=== PATIENT | male | born 1990 ===

== ENCOUNTER 2020-05-04 09:20 | Outpatient (REF) | payer OTHER, SELFPAY | END 2020-05-04 09:21 | disposition home or self-care (01) | LOC: HO.LAB 09:20 | PROVIDERS: Visit Provider Internal Medicine | DX: Z20.828 Contact with and (suspected) exposure to other viral communicable diseases (principal) | CPT/HCPCS: 87635 ==

== ENCOUNTER 2020-06-26 16:10 | Outpatient (REF) | payer OTHER, SELFPAY | END 2020-06-26 16:11 | disposition home or self-care (01) | LOC: HO.LAB 16:10 | PROVIDERS: Visit Provider Internal Medicine | DX: Z20.828 Contact with and (suspected) exposure to other viral communicable diseases (principal) | CPT/HCPCS: C9803; U0003 ==

== ENCOUNTER 2020-07-20 11:47 | Emergency (ER) | payer OTHER, SELFPAY ==
[2020-07-20 13:07] VITALS: BP 124/52; PULSE 72; RESP 18; TEMP 36.7; O2SAT 96; BMI 23.3
--- NOTE | 2020-07-20 13:17 | ED_ITS ---
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 States laceration occurred at work he was replacing a heat radiator and a sharp pointy metal part cut across his palm resulting in a small 2 cm laceration. States he had blood coming which stopped with pressure dressing. He denies any finger weakness or numbness. Able to make a full fist and full movement. States tetanus vaccination 6 months ago. Date of injury 07/20/2020 occurred 1 hour prior to arrival Onset (ago): hour(s) Extremity Location: right: hand Place: work Patient tetanus UTD: Yes Associated symptoms: none Related Data Previous Rx's Medication Instructions Recorded cephalexin [Keflex] 500 mg PO BID 7 Days #14 cap 07/20/20 Allergies Allergy/AdvReac Type Severity Reaction Status Date / Time No Known Allergies Allergy Verified 07/20/20 13:09 [No Known Allergies*] Review of Systems Review of Systems: Constitutional: No Weight loss, No Fever, No Chills, No Night Sweats, No Fatigue, No Malaise ENT/Mouth: No Hearing loss, No Ear Pain, No Nasal Congestion, No Sinus Pain, No Hoarseness, No sore throat, No Rhinorrhea, No Swallowing Difficulty Eyes: No Eye Pain, No Swelling, No Redness, No Foreign Body, No Discharge, No Vision Changes Cardiovascular: No Chest Pain Respiratory: No Cough Gastrointestinal: No abdominal Pain Musculoskeletal: No joint pain, No Myalgias, No Joint Swelling Skin: No Skin Lesions, No rash- laceration to right hand Neuro: No Weakness, No Numbness, No Paresthesias, No Loss of Consciousness, No Dizziness, No Headache Psych: No Social Issues Heme/Lymph: No Bruising, No Bleeding,No Lymphadenopathy Endocrine: No Polyuria, No Polydipsia, No Temperature Intolerance Yes all other systems are reviewed and are negative COUNT INCLUDES [facility] Past Medical History Medical History (Updated 07/20/20 @ 14:12 by Perry Garvey NP) No known health problems Social History Social History Advance Directives: No Advance Directives Information Provided: No Physical Exam Vital Signs: Vital Signs: Last Vital Signs Temp 98.0 F 07/20/20 13:07 Pulse 72 07/20/20 13:07 Resp 18 07/20/20 13:07 BP 124/52 L 07/20/20 13:07 Pulse Ox 96 07/20/20 13:07 Body Mass Index 23.3 Reviewed Const: General: cooperative and healthy appearing; No acute distress or intoxicated appearing Nutritional Appearance: average body habitus Orientation/consciousness: patient oriented x3 Chest: Chest palpation & inspection: normal inspection of the chest Resp: Effort & Inspection: normal respiratory effort : General: Yes no CVA tenderness Back/Spine/Pelvis: Back: no CVA tenderness Skin: General skin exam: no rashes or lesions noted Neuro: General: patient oriented x3 Extrem: General: Yes normal to inspection Hand/finger images: 1. Superficial 1.5 cm flap-like laceration. Full range of motion. Able to make a fist. Finger to thumb within normal limits. No tender palpation or pain with movement. Course Course Course Narrative: Site extensively cleaned. Treatment options including Steri-Strips, sutures reviewed with patient. Agreeable given the to the laceration sutures will benefit. Risk of infection reviewed. Extensively irrigated and cleaned. Deep structures within normal limits. Neurologically intact. Up-to-date on tetanus vaccination. Given that it was slightly contaminated start Keflex, clear return follow-up instructions provided. Will return in 7-10 days for suture removal. Procedures Laceration Laceration 1: Side (If applicable): right Size (cm): 1.5 Description: linear and flap Depth: simple, single layer Local Anesthetic: lidocaine 1% Amount of anesthesia used (mL): 5 Pre-repair: irrigated extensively (Extensively irrigated with 500 cc of normal saline with 10 ml hydrogen peroxide.), deep structures intact and extensive debridement Skin layer closed with: nylon Size (cm): 4-0 Number of sutures: 2 Technique: simple, interrupted Discharge Plan Discharge Clinical Impression: Laceration of right palm Qualifiers: Encounter type: initial encounter Qualified Code(s): S61.411A - Laceration without foreign body of right hand, initial encounter Patient Disposition: Home, Self-Care Instructions: Laceration (ED) Additional Instructions: You suffered a superficial laceration to the palm of the right hand. This was extensively cleaned and irrigated prior to superficial stitches Given that there was small amount emanating in the laceration risk and benefits of having sutures were reviewed with you Site was thoroughly cleaned again There was no visible contaminants left You will be started on empiric (preventative antibiotic) Take this for the full course May use Tylenol or Motrin for pain And limit the use of the right hand To numb the right hand wet or dirty Return in 7-10 days for suture removal Monitor for any signs of infection including redness, swelling, discharge, pain, fever if any of his present return right away to emergency room Thank you Prescriptions: New cephalexin [Keflex] 500 mg capsule 500 mg PO BID 7 Days Qty: 14 RF: 0 Referrals: Perry Garvey RECORDS MANAGEMENT CLERK [Emergency Midlevel Provider] - 1 week (7-10 days for suture removal)
[2020-07-20] MEDS: Lidocaine HCl 1 % MPF 5 ML VIAL SUBCUT (13:38)
--- NOTE | 2020-07-20 13:39 | PC.NURSE ---
RIGHT HAND/PALM CLEANSED WITH NS AND HYDROGEN PEROXIDE.
== END 2020-07-20 14:29 | disposition home or self-care (01) ==
PROVIDERS: Emergency Provider Emergency Medicine
DX: S61.411A Laceration without foreign body of right hand, initial encounter (principal); W26.8XXA Contact with other sharp object(s), not elsewhere classified, initial encounter; Y93.89 Activity, other specified; Y92.9 Unspecified place or not applicable; Y99.0 Civilian activity done for income or pay
CPT/HCPCS: 12001; 99282; 99284

== ENCOUNTER 2020-11-13 12:17 | Outpatient (REF) | payer OTHER, SELFPAY ==
[2020-11-13 12:36] LABS: COVID-19 Test Negative (Negative)
== END 2020-11-13 12:18 | disposition home or self-care (01) ==
LOC: HO.LAB 12:17
PROVIDERS: Visit Provider Internal Medicine
DX: Z20.822 Contact with and (suspected) exposure to COVID-19 (principal)
CPT/HCPCS: 36415; 87635; C9803

== ENCOUNTER 2021-03-30 15:43 | Outpatient (REF) | payer OTHER, SELFPAY | END 2021-03-30 15:44 | disposition home or self-care (01) | LOC: HO.LAB 15:43 | PROVIDERS: Visit Provider Internal Medicine | DX: Z20.822 Contact with and (suspected) exposure to COVID-19 (principal) | CPT/HCPCS: C9803; U0003; U0005 ==

== ENCOUNTER 2021-07-06 08:15 | Outpatient (REF) | payer OTHER, SELFPAY ==
[2021-07-06 09:14] LABS: COVID-19 Test Negative (Negative)
== END 2021-07-06 08:16 | disposition home or self-care (01) ==
LOC: HO.LAB 08:15
PROVIDERS: Visit Provider Internal Medicine
DX: Z20.822 Contact with and (suspected) exposure to COVID-19 (principal)
CPT/HCPCS: 36415; 87635; C9803

== ENCOUNTER 2021-11-30 15:36 | Outpatient (REF) | payer OTHER, SELFPAY ==
[2021-11-30 16:16] LABS: COVID-19 Test Negative (Negative)
== END 2021-11-30 15:37 | disposition home or self-care (01) ==
LOC: HO.LAB 15:36
PROVIDERS: Visit Provider Internal Medicine
DX: Z20.822 Contact with and (suspected) exposure to COVID-19 (principal)
CPT/HCPCS: 87635; C9803

== ENCOUNTER 2023-01-02 19:47 | Emergency (ER) | payer OTHER, SELFPAY ==
--- NOTE | ~2023-01-02 | XR_ITS ---
EXAMINATION: XR FINGER, LEFT CLINICAL INFORMATION: Pain. COMPARISON: None available. TECHNIQUE: Three views of the left thumb. FINDINGS: Mild soft tissue swelling. No fracture. Alignment is anatomic. Joint spaces are maintained. XR/XR finger LT min 2V IMPRESSION: Mild soft tissue swelling. No fracture or malalignment.
--- NOTE | 2023-01-02 19:59 | ED.GENADULT ---
HPI - General Adult General Chief complaint: Extremity Injury, Upper Stated complaint: left thumb pain Time Seen by Provider: 01/02/23 20:12 Source: patient Mode of arrival: ambulatory Limitations: no limitations History of Present Illness HPI narrative: Patient is a 32-year-old male presents emergency department for evaluation of left thumb injury. Reports that he was attempting to catch a softball in his finger bent backwards and was stuck in place when he popped it forward into a normal position. Denies any numbness or tingling. It is however painful with movement of the thumb joint, and there is some mild swelling. He has been applying ice to it. Related Data Previous Rx's Medication Instructions Recorded cephalexin 500 mg capsule (Keflex) 500 mg PO BID 7 days #14 caps 07/20/20 Allergies Allergy/AdvReac Type Severity Reaction Status Date / Time No Known Allergies Allergy Verified 07/20/20 13:09 [No Known Allergies*] Review of Systems Review of Systems: Yes all other systems are reviewed and are negative [facility] Past Medical History Attestation statement: The following information was validated with the patient. Source: old records reviewed Medical History No known health problems Social History Social History Advance Directives: No Advance Directives Information Provided: Yes Physical Exam ED Vital Signs: Vital Signs - 24 hr 01/02/23 20:02 Temperature 98.0 F Pulse Rate 107 H Respiratory Rate 16 Blood Pressure 130/69 Pulse Oximetry 98 Oxygen Delivery Method Room Air BMI result Body Mass Index 26.3 Const Other: Appearance: Alert.?Oriented to person, place and time. No acute distress.?Normal affect. CVS: Heart sounds normal. Normal heart rate and rhythm.? Pulses normal.?? Respiratory: No respiratory distress.? Lung sounds clear to auscultation bilaterally?? Skin: Skin warm and dry.? Normal skin color.? Normal skin turgor.?? Extremities: Left hand with mild swelling at the base of the thumb on the palmar aspect, mild decreased AROM, no erythema, or obvious deformity. 2+ radial pulse bilaterally. Left thumb is neurovascularly intact Neuro: Moves all extremities spontaneously. Sensation intact bilaterally. Ambulates with normal steady gait. Course Course Course Narrative: 32-year-old male presents for evaluation of left thumb pain. He reports he was trying to catch a softball which bent his finger backwards. Patient states that the thumb was then stuck backwards and he ripped it forwards into normal position with his other hand. Plan for x-ray Medications Administered Discontinued Medications Generic Name Dose Route Start Last Admin Trade Name oGran PRN Reason Stop Dose Admin Morphine Sulfate 4 mg 01/02/23 20:04 01/02/23 20:12 Morphine Sulfate 4 Mg/Ml Cartridge IM 01/02/23 20:05 4 mg ONCE ONE Administration Protocol Ondansetron HCl 4 mg 01/02/23 20:04 01/02/23 20:13 Ondansetron Odt 4 Mg Tab.Rapdis TRANSLINGU 01/02/23 20:05 4 mg ONCE ONE Administration Medical Decision Making Medical Decision Making [facility] Narrative: Patient is a 32-year-old male presents emergency department for evaluation of left thumb pain after a softball injury, with hyperextension of the digit and reported manual reduction. X-ray reveals soft tissue swelling without acute fracture malalignment. There is pain, mild swelling, and decreased AROM. I suspect a potential dislocation with manual reduction based on story. Patient placed in a thumb splint, advised gentle stretching exercises/movement of the thumb joint, acetaminophen/ibuprofen as needed for pain, ice. Reviewed worsening signs and symptoms that would warrant re-evaluation. All questions answered. Stable for discharge. Differential Diagnosis Differential Diagnoses: The differential diagnosis associated with the presentation includes (Fracture, dislocation) Independent Interpretation I performed an independent interpretation of an: Plain X-Ray (Have person turbid x-ray of the left hand and agree with radiologist impression) Radiology Impression Discussion of test interpretation with radiology: I have reviewed the radiologist's reading. Radiologist Impression: XR/XR finger LT min 2V IMPRESSION: Mild soft tissue swelling. No fracture or malalignment. ? Prescription Management I considered prescription management with: Pain Medication (Acetaminophen/ibuprofen) Discharge Plan Discharge Clinical Impression: Finger sprain Patient Disposition: Home, Self-Care Instructions: Finger Sprain (ED) Additional Instructions: Keep the splint in place for a few days, remove 3-4 times daily for gentle stretching/movement of the thumb, and bathing. You can take ibuprofen 200 mg, 3 tablets (600mg) every 6-8 hours as needed for pain, in addition to Tylenol 500 mg, 2 tablets (1,000mg) every 4-6 hours as needed for pain, but not to exceed 3 doses daily (3,000mg).? Follow-up with your primary care provider as needed. Return back to emergency department any new or worsening symptoms or concerns. Prescriptions: No Action cephalexin [Keflex] 500 mg capsule 500 mg PO BID 7 Days Qty: 14 0RF Stand Alone Forms: Work/School Release
[2023-01-02 20:02] VITALS: BP 130/69; PULSE 107; RESP 16; TEMP 36.7; O2SAT 98; BMI 26.3
[2023-01-02] MEDS: Morphine Sulfate 4 MG/ML CARTRIDGE IM (20:12)
[2023-01-02] MEDS: Ondansetron ODT 4 MG TAB.RAPDIS TRANSLINGU (20:13)
--- NOTE | 2023-01-02 20:17 | PC.NURSE ---
pt medicated per mar, Will continue to monitor.
--- NOTE | 2023-01-02 22:03 | PC.NURSE ---
splint applied,Reviewed discharge instructions with pt. pt verbalized understanding. pt able to move digits and positive cms.
== END 2023-01-02 22:20 | disposition home or self-care (01) ==
PROVIDERS: Emergency Provider Emergency Medicine
DX: S63.602A Unspecified sprain of left thumb, initial encounter (principal); M79.642 Pain in left hand; Y29.XXXA Contact with blunt object, undetermined intent, initial encounter; Y93.9 Activity, unspecified; Y92.9 Unspecified place or not applicable; Y99.9 Unspecified external cause status
CPT/HCPCS: 29130; 73140; 96372; 99283; 99284; J2270

== ENCOUNTER 2024-10-16 22:45 | Emergency (ER) | payer OTHER, SELFPAY ==
--- NOTE | ~2024-10-16 | XR_ITS ---
CLINICAL HISTORY: SOB 2 view chest x-ray Comparison: None Findings: No consolidation or effusion. No pneumothorax. Heart size is normal. No acute fracture. IMPRESSION: No consolidation. This document has been electronically signed by: Carlito Crain MD on 10/16/2024 23:59:23
[2024-10-16 22:54] VITALS: BP 118/72; PULSE 106; O2SAT 97
[2024-10-16 22:58] VITALS: BP 131/46; PULSE 99; RESP 20; TEMP 37.8; O2SAT 97; BMI 29.5
[2024-10-16] MEDS: Acetaminophen 325 MG TABLET 650 MG PO (23:03)
--- NOTE | 2024-10-16 23:03 | ECG_ITS ---
Test Reason : DISPENA Blood Pressure : */* mmHG Vent. Rate : 98 BPM Atrial Rate : 98 BPM P-R Int : 136 ms QRS Dur : 74 ms QT Int : 314 ms P-R-T Axes : 46 29 45 degrees QTcB Int : 400 ms Normal sinus rhythm Normal ECG When compared with ECG of 21-Oct-2018 07:49, MD interval has increased Referred By: Generic ED Physician Electronically Signed By: BRIDGET IBARRA
[2024-10-16 23:21] LABS: Basophils Percent Auto 0.2 % (0-2); Eosinophils Percent Auto 0.1 % (0-4); Hemoglobin 13.4 g/dl (14.0-18.0); Imm Gran Abs Auto 0.03 X10*3/uL (0.00-0.03); Imm Gran Pct Auto 0.3 % (0.0-0.4); Lymphocytes Percent Auto 4.2 % (20-40); MANUAL DIFF FLAG SCAN; Mean Corpuscular Hemoglobin 31.4 pg (27.0-33.0); PLT CLUMP 1; Red Blood Count 4.27 X10*6/uL (4.60-5.80); Red Cell Distribution Width 11.8 % (11.0-16.0); SCAN SMEAR FLAG 1
[2024-10-16 23:23] LABS: Hematocrit 36.8 % (42.0-52.0); Lymphocytes Absolute Auto 0.4 X10*3/uL (1.2-4.9); Mean Corpuscular HGB Conc 36.4 g/dl (31.0-36.0); Mean Corpuscular Volume 86.2 fL (80.0-98.0); Mean Platelet Volume 11.9 fL (9.4-12.4); Monocytes Absolute Auto 0.8 X10*3/uL (0.1-1.2); Monocytes Percent Auto 8.7 % (2-11); Neutrophils Absolute Auto 7.9 x10*3/uL (2.0-8.3); Neutrophils Percent Auto 86.5 % (45-73)
[2024-10-16 23:37] LABS: Platelet Count 136 X10*3/uL (160-400)
[2024-10-16 23:39] LABS: Alanine Aminotransferase 55 U/L (0-40); Albumin Level 4.4 g/dL (3.5-5.0); Alkaline Phosphatase 75 U/L (39-117); Anion Gap 12 (12-20); Aspartate Amino Transferase 31 U/L (5-37); Blood Urea Nitrogen 14 mg/dL (9-16); Calcium 8.8 mg/dL (8.4-10.2); Carbon Dioxide 24 mmol/L (22-29); Chloride 106 mmol/L (96-108); Creatinine Clr Calc Pharmacy 124.2; Estimated Glomerular Filt Rate > 60; Glucose Random 141 mg/dL (60-115); Potassium 3.8 mmol/L (3.3-5.1); Sodium 138 mmol/L (135-145)
[2024-10-16 23:58] LABS: Influenza A PCR NEGATIVE (Negative); Influenza B PCR NEGATIVE (Negative); Resp Syncy Virus RNA Qual PCR NEGATIVE (Negative); SARS COV2 PCR INHOUSE NEGATIVE (Negative)
[2024-10-17 00:03] LABS: SLIDE REVIEW VERIFIED
[2024-10-17 00:04] LABS: Troponin-I High Sensitivity < 2.7 ng/L (<3.5-35.0)
[2024-10-17 00:18] VITALS: BP 110/65; PULSE 100; RESP 20; TEMP 37.9; O2SAT 95
--- NOTE | 2024-10-17 01:27 | ED_ITS ---
HPI - SOB/Dyspnea General Chief Complaint: Dyspnea Stated Complaint: Wheezing bi lat, fever x1day Time Seen by Provider: 10/17/24 00:49 Source: patient Mode of arrival: EMS Limitations: no limitations History of Present Illness ED Provider: HPI Narrative: Patient's history of anxiety comes here with multiple complaints seems like he had a panic attack prior to arrival used to take anxiety medication does not have any medicine for last 2 years when triage patient was complaining of shortness a breath wheezing chest pain whenI examined patient was complaining of headache and dizziness patient also complaining of cough and congestion for last 2 days noted to have temperature of 100.2 degrees on arrival Related Data Previous Rx's ?Medication ?Instructions ?Recorded cephalexin 500 mg capsule (Keflex) 500 mg PO BID 7 days #14 caps 07/20/20 hydroxyzine HCl 25 mg tablet 25 mg PO BID PRN anxiety #30 tabs 10/17/24 Allergies Allergy/AdvReac Type Severity Reaction Status Date / Time No Known Allergies Allergy Verified 10/16/24 23:00 [No Known Allergies*] Review of Systems 2 Review of Systems: Yes all other systems are reviewed and are negative [facility] Past Medical History Medical History No known health problems Social History Social History Advance Directives: No Advance Directives Information Provided: Yes Physical Exam 2 Vital Signs: Vital Signs: Last Vital Signs Temp 100.2 F 10/17/24 01:49 Pulse 100 10/17/24 01:49 Resp 20 10/17/24 01:49 BP 110/65 10/17/24 01:49 Pulse Ox 95 10/17/24 01:49 O2 Del Method Room Air 10/17/24 01:49 BMI result Body Mass Index 29.5 Appearance: Alert. Oriented X3. No acute distress. Eyes: PERRLA, No Nystagmus ENT: Pharynx normal. Oral Mucosa moist Neck: Normal inspection. Neck supple. CVS: Normal heart rate and rhythm. Pulses normal. Respiratory: No respiratory distress. Equal air entry bilateral, no wheezing/rales/rhonchi Abdomen: Soft and nontender. Bowel sounds are present, no mass palpable, no CVA tenderness Skin: Skin warm and dry. Normal skin color. Normal skin turgor. Extremities: No lower extremity edema. No calf tenderness Neuro: Oriented X 3. No motor deficit. No sensory deficit.No cerebellar signs , cranial nerves II-XII intact Medications Administered Discontinued Medications Generic Name Dose Route Start Last Admin Trade Name Goran PRN Reason Stop Dose Admin Acetaminophen 650 mg 10/16/24 23:01 10/16/24 23:03 Acetaminophen 325 Mg Tablet PO 10/16/24 23:02 650 mg ONCE ONE Administration Lorazepam 1 mg 10/17/24 01:33 10/17/24 01:44 Lorazepam 1 Mg Tablet PO 10/17/24 01:34 1 mg ONCE ONE Administration Medical Decision Making Medical Decision Making [facility] Narrative: Patient has viral syndrome labs are stable also has anxiety will give him prescription for hydroxyzine patient's COVID flu RSV chest x-ray labs are negative Lab Data [facility] Lab Attestation statement: I reviewed the patient's lab results. 10/16/24 23:14 10/16/24 23:14 Labs: Lab Results 10/16/24 Range/Units 23:14 WBC 5.0 (4.8-10.8) X10*3/uL RBC 4.27 L (4.60-5.80) X10*6/uL Hgb 13.4 L (14.0-18.0) g/dl Hct 36.8 L (42.0-52.0) % MCV 86.2 (80.0-98.0) fL MCH 31.4 (27.0-33.0) pg MCHC 36.4 H (31.0-36.0) g/dl RDW 11.8 (11.0-16.0) % Plt Count 136 L (160-400) X10*3/uL MPV 11.9 (9.4-12.4) fL Immature Gran % (Auto) 0.3 (0.0-0.4) % Neut % (Auto) 86.5 H (45-73) % Lymph % (Auto) 4.2 L (20-40) % [place] % (Auto) 8.7 (2-11) % Eos % (Auto) 0.1 (0-4) % Baso % (Auto) 0.2 (0-2) % Lymph # (Auto) 0.4 L (1.2-4.9) X10*3/uL [place] # (Auto) 0.8 (0.1-1.2) X10*3/uL Eos # (Auto) 0.0 (0.0-0.4) X10*3/uL Baso # (Auto) 0.0 (0.0-0.2) X10*3/uL Abs Immat Gran (auto) 0.03 (0.00-0.03) X10*3/uL Absolute Neuts (auto) 7.9 (2.0-8.3) x10*3/uL Absolute Nucleated RBC 0.000 (0.0-0.012) X10*3/uL Nucleated RBC % (auto) 0.0 (0.0-0.2) /100WBC Smear Tech's Comments VERIFIED Sodium 138 (135-145) mmol/L Potassium 3.8 (3.3-5.1) mmol/L Chloride 106 (96-108) mmol/L Carbon Dioxide 24 (22-29) mmol/L Anion Gap 12 (12-20) BUN 14 (9-16) mg/dL Creatinine 0.95 (0.5-1.4) mg/dL Estim Creat Clear Calc 124.2 Estimated GFR > 60 Random Glucose 141 H (60-115) mg/dL Calcium 8.8 (8.4-10.2) mg/dL Total Bilirubin 1.0 (0.0-1.0) mg/dL AST 31 (5-37) U/L ALT 55 H (0-40) U/L Alkaline Phosphatase 75 (39-117) U/L Troponin I High Sens < 2.7 (<3.5-35.0) ng/L Total Protein 7.0 (6.5-8.0) g/dL Albumin 4.4 (3.5-5.0) g/dL Influenza Type A (PCR) NEGATIVE (Negative) Influenza Type B (PCR) NEGATIVE (Negative) RSV RNA Qual (PCR) NEGATIVE (Negative) SARS-CoV-2 RNA (RT-PCR) NEGATIVE (Negative) Independent Interpretation I performed an independent interpretation of an: EKG Interpretation: Normal sinus rhythm heart rate 70 98 beats per minute normal interval normal axis no acute STT wave changes no acute ischemia Radiology Impression Discussion of test interpretation with radiology: I have reviewed the radiologist's reading. Radiologist Impression: No pneumonia Discharge Plan Discharge Clinical Impression: Anxiety Patient Disposition: Home, Self-Care Instructions: Anxiety (ED) Additional Instructions: Take medication for anxiety as prescribed Follow up with your PCP Prescriptions: New hydroxyzine HCl 25 mg tablet 25 mg PO BID PRN (Reason: anxiety) Qty: 30 0RF No Action cephalexin [Keflex] 500 mg capsule 500 mg PO BID 7 Days Qty: 14 0RF Interventions: ED Discharge Assessment Last Done: 10/17/24 01:49 Discharge Date/Time: 10/17/24 01:49 Print Language: Upper Sorbian
[2024-10-17] MEDS: LORazepam 1 MG TABLET PO (01:44)
[2024-10-17 01:49] VITALS: BP 110/65; PULSE 100; RESP 20; TEMP 37.9; O2SAT 95
== END 2024-10-17 01:49 | disposition home or self-care (01) ==
PROVIDERS: Emergency Provider Internal Medicine; PCP Internal Medicine
DX: F41.9 Anxiety disorder, unspecified (principal); R06.02 Shortness of breath; R51.9 Headache, unspecified; R05.9 Cough, unspecified; Z03.818 Encounter for observation for suspected exposure to other biological agents ruled out
CPT/HCPCS: 0241U; 71046; 80053; 84484; 85025; 93005; 99283; 99284

== ENCOUNTER → 2024-10-16 23:03 | Outpatient (BNV) | payer OTHER, SELFPAY | PROVIDERS: Emergency Provider Internal Medicine; PCP Internal Medicine; Visit Provider Internal Medicine | DX: R06.00 Dyspnea, unspecified (principal) | CPT/HCPCS: 93010 ==

== ENCOUNTER → 2024-10-16 23:10 | Outpatient (BNV) | payer OTHER, SELFPAY | PROVIDERS: Emergency Provider Internal Medicine; PCP Internal Medicine; Visit Provider Radiology Neuroradiology | DX: R06.02 Shortness of breath (principal) | CPT/HCPCS: 71046 ==

== ENCOUNTER 2025-05-23 14:47 | Emergency (ER) | payer OTHER, SELFPAY ==
--- NOTE | ~2025-05-23 | XR_ITS ---
CLINICAL HISTORY: cp 1 view chest x-ray Comparison: CR/SR - XR CHEST 2 VIEWS - 05/23/25 15:28 EST Findings: No consolidation or effusion. Normal size heart. No acute fracture. IMPRESSION: 1. No acute findings. This document has been electronically signed by: Alvarez Gaona MD on 05/23/2025 17:56:13
--- NOTE | ~2025-05-23 | XR_ITS ---
EXAMINATION: XR CHEST CLINICAL INFORMATION: CP COMPARISON: X-ray 10/16/2024 TECHNIQUE: 2 views of the chest were obtained. FINDINGS: The cardiomediastinal silhouette is within normal limits. The lungs are well expanded. There is no focal consolidation, edema, or effusion. No pneumothorax. No acute osseous abnormality. XR/XR chest 2V IMPRESSION: No acute cardiopulmonary findings Electronically signed by: Brian Jaeger MD 05/23/2025 03:26 PM [facility] [place] [place]
--- NOTE | 2025-05-23 14:48 | ECG_ITS ---
Test Reason : CP Blood Pressure : */* mmHG Vent. Rate : 68 BPM Atrial Rate : 68 BPM P-R Int : 148 ms QRS Dur : 92 ms QT Int : 368 ms P-R-T Axes : 44 22 27 degrees QTcB Int : 391 ms Normal sinus rhythm Normal ECG When compared with ECG of 16-Oct-2024 23:06, No significant change was found Referred By: Ya Driscoll Electronically Signed By: Mian Montaño
[2025-05-23 14:54] VITALS: BP 147/89; PULSE 73; RESP 16; TEMP 36.4; O2SAT 98; BMI 30.7
--- NOTE | 2025-05-23 14:57 | ED_ITS ---
HPI - Chest Pain General Chief Complaint: Chest Pain Stated Complaint: CP, sob Time Seen by Provider: 05/23/25 16:52 History of Present Illness HPI narrative: Patient is a 35-year-old male presents today with having chest pain. The chest pain is on the left side. It is pointed. Localized in that area. It lasted for about a minute each. It happens when patient is putting a screw into the wall. Patient also had about 4-5 episode of this. Had not use cocaine for about 8 months. There is no fever no chills. No history of diabetes. No history of hypertension. No history of high cholesterol. Positive history of smoking. Mom had a MT at the age of 54. No travel history no leg swelling. No history of blood clots. Patient is from home. Related Data Previous Rx's ?Medication ?Instructions ?Recorded cephalexin 500 mg capsule (Keflex) 500 mg PO BID 7 day s #14 caps 07/20/20 hydroxyzine HCl 25 mg tablet 25 mg PO BID PRN anxiety #30 tabs 10/17/24 Allergies Allergy/AdvReac Type Severity Reaction Status Date / Time No Known Allergies (No Known Allergy Verified 05/23/25 14:57 Allergies*) Review of Systems 2 Review of Systems: Positive chest pain Yes all other systems are reviewed and are negative [facility] Past Medical History Attestation statement: The following information was validated with the patient. Medical History No known health problems Social History Social History Advance Directives: No Advance Directives Information Provided: No Physical Exam 2 Exam: Exam: Appearance: Alert. Oriented X3. No acute distress. Eyes: Pupils equal, round and reactive to light. ENT: Pharynx normal. Neck: Normal inspection. Neck supple. No lymph nodes noted. No crepitus CVS: Normal heart rate and rhythm. Pulses normal. Normal S1 and S2 Respiratory: No respiratory distress. Breath sounds normal. No Wheezing. No rales Abdomen: Soft and nontender. No rigidity. No distention. good BS x4 Skin: Skin warm and dry. Normal skin color. Normal skin turgor. Extremities: No lower extremity edema. Neurovascular intact to all extremities. No Lacerations. No Rash Neuro: Oriented X 3. No motor deficit. No sensory deficit. Moving all extermities. No slurred speech Vital Signs: Vital Signs: Last Vital Signs Temp 97.5 F 05/23/25 14:54 Pulse 62 05/23/25 18:10 Resp 16 05/23/25 18:10 BP 124/74 05/23/25 18:10 Pulse Ox 97 05/23/25 18:10 O2 Del Method Room Air 05/23/25 18:10 BMI result Body Mass Index 30.7 Course Course Course Narrative: This is an RME: Additional HPI, ROS, PE not included below will be deferred to primary provider. RME assessment and note performed by: Ya Driscoll PA-C This is a 57-cbrr-xov-male who presents to the ER with complaints of stabbing chest pain intermittently throughout the day, started this morning. States that this started when he was working. He also endorses some dizziness on moving in blurry vision which started this morning. Does endorse drug use, has not used for 8 months. No recent travel, surgery, or hospitalizations. Plan: Labs, EKG, chest x-ray, further ER evaluation needed. Medical Decision Making Medical Decision Making [facility] Narrative: My interpretation patient's EKG showed a sinus rhythm heart rate is 70 IA QRS QTC normal there is no acute ST segment elevation noted. Patient's D-dimer is negative. In the setting of low risk unlikely to have a PE. My interpretation patient's chest x-ray was grossly negative. There is a two-view chest done which was grossly negative for pneumonia no pneumothorax. Cardiac enzyme is less than 2.7 times 2 sets. In the setting of a 35-year-old atypical chest pain unlikely to have ACS. Heart score is less than 3. Patient's hemoglobin is 14. Will discharge patient home close follow-up on an outpatient basis Differential Diagnosis Differential Diagnoses: The differential diagnosis associated with the presentation includes ACS, atypical chest pain, PE, pneumonia, pneumothorax Admission/Observation Consideration of admission/observation: Escalation of care including admission/observation considered Lab Data [facility] Lab Attestation statement: I reviewed the patient's lab results. 05/23/25 16:06 05/23/25 16:06 Labs: Lab Results 05/23/25 05/23/25 Range/Units 16:06 17:42 WBC 5.0 (4.8-10.8) X10*3/uL RBC 4.64 (4.60-5.80) X10*6/uL Hgb 14.1 (14.0-18.0) g/dl Hct 40.5 L (42.0-52.0) % MCV 87.3 (80.0-98.0) fL MCH 30.4 (27.0-33.0) pg MCHC 34.8 (31.0-36.0) g/dl RDW 11.6 (11.0-16.0) % Plt Count 174 D (160-400) X10*3/uL MPV 11.6 (9.4-12.4) fL Immature Gran % (Auto) 0.4 (0.0-0.4) % Neut % (Auto) 64.4 (45-73) % Lymph % (Auto) 23.0 (20-40) % [place] % (Auto) 10.2 (2-11) % Eos % (Auto) 1.6 (0-4) % Baso % (Auto) 0.4 (0-2) % Lymph # (Auto) 1.2 (1.2-4.9) X10*3/uL [place] # (Auto) 0.5 (0.1-1.2) X10*3/uL Eos # (Auto) 0.1 (0.0-0.4) X10*3/uL Baso # (Auto) 0.0 (0.0-0.2) X10*3/uL Abs Immat Gran (auto) 0.02 (0.00-0.03) X10*3/uL Absolute Neuts (auto) 3.2 (2.0-8.3) x10*3/uL Absolute Nucleated RBC 0.000 (0.0-0.012) X10*3/uL Nucleated RBC % (auto) 0.0 (0.0-0.2) /100WBC D-Dimer High Sensitivty < 150 NG/ML Sodium 139 (135-145) mmol/L Potassium 4.0 (3.3-5.1) mmol/L Chloride 106 (96-108) mmol/L Carbon Dioxide 27 (22-29) mmol/L Anion Gap 10 L (12-20) BUN 13 (9-16) mg/dL Creatinine 0.91 (0.5-1.4) mg/dL Estim Creat Clear Calc 130.8 Estimated GFR > 60 Random Glucose 100 (60-115) mg/dL Calcium 9.0 (8.4-10.2) mg/dL Magnesium 2.1 (1.6-2.6) mg/dL Total Bilirubin 0.6 (0.0-1.0) mg/dL Direct Bilirubin 0.2 (0.0-0.5) mg/dL AST 49 H (5-37) U/L ALT 94 H (0-40) U/L Alkaline Phosphatase 104 (39-117) U/L Troponin I High Sens < 2.7 < 2.7 (<3.5-35.0) ng/L Total Protein 7.5 (6.5-8.0) g/dL Albumin 4.9 (3.5-5.0) g/dL Influenza Type A (PCR) NEGATIVE (Negative) Influenza Type B (PCR) NEGATIVE (Negative) RSV RNA Qual (PCR) NEGATIVE (Negative) SARS-CoV-2 RNA (RT-PCR) NEGATIVE (Negative) Independent Interpretation I performed an independent interpretation of an: EKG (Sinus heart rate is 70 IA QRS QTC within normal limits there is no acute ST segment elevation noted) and Plain X-Ray (Chest x-ray grossly negative) Radiology Impression Discussion of test interpretation with radiology: I have reviewed the radiologist's reading. External Record Review External record reviewed: Office record Social Determinants Patient?s care significantly limited by Social Determinants of Health including: Problems related to primary support group Discharge Plan Discharge Clinical Impression: Chest pain Patient Disposition: Home, Self-Care Instructions: Chest Pain (ED) Prescriptions: No Action cephalexin [Keflex] 500 mg capsule 500 mg PO BID 7 Days Qty: 14 0RF hydroxyzine HCl 25 mg tablet 25 mg PO BID PRN (Reason: anxiety) Qty: 30 0RF Referrals: Tuan Lira MD [Primary Care Provider, Internal Medicine] - 05/26/25 Print Language: Uzbek
[2025-05-23 16:10] LABS: MANUAL DIFF FLAG NO
[2025-05-23 16:14] LABS: Hematocrit 40.5 % (42.0-52.0); Hemoglobin 14.1 g/dl (14.0-18.0); Imm Gran Abs Auto 0.02 X10*3/uL (0.00-0.03); Imm Gran Pct Auto 0.4 % (0.0-0.4); Lymphocytes Absolute Auto 1.2 X10*3/uL (1.2-4.9); Mean Corpuscular HGB Conc 34.8 g/dl (31.0-36.0); Mean Corpuscular Hemoglobin 30.4 pg (27.0-33.0); Mean Corpuscular Volume 87.3 fL (80.0-98.0); NRBC Abs Auto 0.000 X10*3/uL (0.0-0.012); NRBC Pct Auto 0.0 /100WBC (0.0-0.2); Platelet Count 174 X10*3/uL (160-400); Red Blood Count 4.64 X10*6/uL (4.60-5.80); White Blood Count 5.0 X10*3/uL (4.8-10.8)
[2025-05-23 16:25] LABS: Alanine Aminotransferase 94 U/L (0-40); Albumin Level 4.9 g/dL (3.5-5.0); Alkaline Phosphatase 104 U/L (39-117); Anion Gap 10 (12-20); Aspartate Amino Transferase 49 U/L (5-37); Blood Urea Nitrogen 13 mg/dL (9-16); Calcium 9.0 mg/dL (8.4-10.2); Carbon Dioxide 27 mmol/L (22-29); Chloride 106 mmol/L (96-108); Creatinine Clr Calc Pharmacy 130.8; Estimated Glomerular Filt Rate > 60; Magnesium 2.1 mg/dL (1.6-2.6); Potassium 4.0 mmol/L (3.3-5.1); Sodium 139 mmol/L (135-145); Total Protein 7.5 g/dL (6.5-8.0)
[2025-05-23 16:34] LABS: Troponin-I High Sensitivity < 2.7 ng/L (<3.5-35.0)
[2025-05-23 16:49] LABS: Resp Syncy Virus RNA Qual PCR NEGATIVE (Negative); SARS COV2 PCR INHOUSE NEGATIVE (Negative)
--- OUTSIDE RECORDS SUMMARY | 2025-05-23 16:56 | XMS_ITS ---
Author Name [facility] Organization Unknown Care Team Organization Name Specialty Phone Email Start Date End Da te [facility] Tuan Lira Primary Care 05/24/202202/14
--- OUTSIDE RECORDS SUMMARY | 2025-05-23 16:56 | XMS_ITS | Encounter Summary ---
Author Organization [employer] [facility] Address [address] [place] [address] Care Team Providers Care Wall Covering Contractor Name Role Phone Unavailable Primary Care Provider Unavailabl e Encounter Details Date Type Department Care Team (Latest Contact Info) Description 10/20/2020 Abstract HHC CONVERSIONS Dental, Provider, DDS Social History Tobacco Use Types Packs/Day Years Used Date Smoking Tobacco: Never Assessed Sex and Gender Information Value Date Recorded Sex Assigned at Male 05/16/2022 10:14 AM EDT Legal Sex Male 10:14 AM EDT Gender Identity Male 05/16/2022 10:14 AM EDT Sexual Orientation Straight 05/16/2022 10 :14 AM EDT documented as of this encounter Plan of Treatment Not on file documented as of this encounter Visit Diagnoses Not on filedocumented in this encounter
--- OUTSIDE RECORDS SUMMARY | 2025-05-23 16:57 | XMS_ITS | Clinical Summary ---
Author Organization [employer] Address [address] [place] [address] Care Team Providers Care Licensing Manager Name Role Phone Unavailable Primary Care Provider Unavailabl e Social History Tobacco Use Types Packs/Day Years Used Date Smoking Tobacco: Never Assessed Sex and Gender Information Value Date Recorded Sex Assigned at Male 05/16/2022 10:14 AM EDT Legal Sex Male 10:14 AM EDT Gender Identity Male 05/16/2022 10:14 AM EDT Sexual Orientation Straight 05/16/2022 10 :14 AM EDT Plan of Treatment Health Maintenance Due Date Last Done Comments Depression Screening 1992 Disability Screening 1992 Alcohol/Substance Use Screening 2004 Tobacco Screening 2004 Family Planning (PISQ) 2007 HPV Vaccines (1 - Male 3-dos e series) 2007 Hepatitis B Vaccines (1 of 3 - 19+ 3-dose series) 2011 DTaP/Tdap/Td Vaccines (2 - T d or Tdap) 07/30/2024 07/30/2014 COVID-19 Vaccine (3 - 2024-2 6 season) 2025 07/07/2021, 06/16/2021 Influenza Vaccine (#1) 2025 5, 07/30/2014 Zoster Vaccines (1 of 2) 2042 RSV Patients and Patients Aged 60 years or older (1 - 1-dose 75+ series) 2067 HIB Vaccines Aged Out No longer eligi ble based on patient's age to complete this topic Hepatitis A Vaccines Aged Out No long er eligible based on patient's age to complete this topic IPV Vaccines Aged Out No longer eligi ble based on patient's age to complete this topic Meningococcal B Vaccine Aged Out No l onger eligible based on patient's age to complete this topic Meningococcal Vaccine Aged Out No lily charly eligible based on patient's age to complete this topic Pneumococcal Vaccine: Pediatrics (0 to 5 Years) and At-Risk Patients (6 to 49) Years Aged Out No longer eligible b ased on patient's age to complete this topic RSV under 20 months Aged Out No longe r eligible based on patient's age to complete this topic Rotavirus Vaccines Aged Out No longer eligible based on patient's age to complete this topic
--- OUTSIDE RECORDS SUMMARY | 2025-05-23 16:57 | XMS_ITS | Encounter Summary ---
Author Organization [employer] [facility] Address [address] [place] [address] Care Team Providers Care Carpenter Foreman Name Role Phone Unavailable Primary Care Provider Unavailabl e Encounter Details Date Type Department Care Team (Latest Contact Info) Description 01/11/2022 Abstract HHC CONVERSIONS Dental, Provider, DDS Social [...]
--- OUTSIDE RECORDS SUMMARY | 2025-05-23 16:57 | XMS_ITS | Clinical Summary ---
Author Organization [facility] Address [address] [place] [address] Phone Care Team Providers Care Test Borer Helper Name Role Phone Jose Alejandro Hyde MD Primary Care Provider U navailable Allergies No known active allergies Medications ibuprofen (ADVIL,MOTRIN) 800 MG tablet Take 1 tablet (800 mg total) by mouth every 8 (eight) hours as needed for pain (specific location in comments) (chest wall pain). 30 tablet 05/23/2019 Active Social History Tobacco Use Types Packs/Day Years Used Date Smoking Tobacco: Never Alcohol Use Standard Drinks/Week Comments Not Currently 0 (1 standard drink = 0.6 oz pur e alcohol) Education Answer Date Recorded Are you interested in more education? Not on joseluis e 11/11/2022 Are you concerned about learning? Not on file 11/11/2022 No 11/11/2022 No 11/11/2022 Digital Access Answer Date Recorded No 12/10/2022 No 12/10/2022 No 12/10/2022 Reliable internet access at home? Not on file 12/10/2022 Device with a working camera? Not on file Sex and Gender Information Value Date Recorded Sex Assigned at Not on file Legal Sex Male 8:13 AM EST Gender Identity Not on file Sexual Orientation Not on file Last Filed Vital Signs Vital Sign Reading Time Taken Comments Blood Pressure 104/65 05/23/2019 12:00 PM EST Pulse 59 05/23/2019 10:30 AM EST Temperature 36.7 C (98 F) 05/23/2019 8:35 AM EST Respiratory Rate 14 05/23/2019 10:30 AM EST Oxygen Saturation 100% 05/23/2019 12:00 PM EST Inhaled Oxygen Concentration - - Weight 83.9 kg (185 lb) 05/23/2019 8:35 AM EST Height - - Body Mass Index - - Plan of Treatment Health Maintenance Due Date Last Done Comments DEPRESSION SCREENING 2004 HEPATITIS C SCREENING 2010 HIV ONE-TIME SCREENING (18-6 5 YEARS) 2010 SMOKING STATUS SCREENING (On ce After 26 Yrs) 2018 Adult Td,Tdap Booster 07/30/2024 07/30/2014 INFLUENZA VACCINE (#1) 2025 5, 07/30/2014 COVID-19 VACCINE (2024-2 6 season) 2025 HEPATITIS A VACCINES Aged Out No long er eligible based on patient's age to complete this topic HIB VACCINES Aged Out No longer eligi ble based on patient's age to complete this topic IPV VACCINES Aged Out No longer eligi ble based on patient's age to complete this topic MENINGOCOCCAL VACCINES (ACWY) Aged Out No longer eligible based on patient's age to complete this topic MENINGOCOCCAL VACCINES (B) Aged Out N o longer eligible based on patient's age to complete this topic PNEUMOCOCCAL VACCINES (0-49 years) Aged Out No longer eligible b ased on patient's age to complete this topic Medical Devices Not on file [place] [address] [place] [address] [facility] [facility] [employer] [employer] [facility] [employer] [employer] [facility] [employer] [employer] [employer] [address] [place] [id number] [place] [address] [employer] Care Teams Test Borer Helper Relationship Specialty Start Date End Date Jose Alejandro Hyde MD PCP - General Internal Medicine 05/23/19 Additional Source Comments The information contained in this document represents components of the legal health record. It is not the complete legal health record.[facility]
[2025-05-23 17:47] VITALS: BP 124/74; PULSE 62; RESP 16; O2SAT 97
[2025-05-23 18:10] VITALS: BP 124/74; PULSE 62; RESP 16; O2SAT 97
[2025-05-23 18:30] LABS: Troponin-I High Sensitivity < 2.7 ng/L (<3.5-35.0)
[2025-05-23 18:54] LABS: D Dimer High Sensitivity < 150 NG/ML
[2025-05-23 19:37] VITALS: BP 119/83; PULSE 65; RESP 16; TEMP 36.3; O2SAT 97
== END 2025-05-23 19:38 | disposition home or self-care (01) ==
PROVIDERS: Physician Assistant Medical; Emergency Provider Emergency Medicine Emergency Medical Services; PCP Internal Medicine
DX: R07.89 Other chest pain (principal); R06.02 Shortness of breath; Z87.891 Personal history of nicotine dependence; Z03.818 Encounter for observation for suspected exposure to other biological agents ruled out
CPT/HCPCS: 36415; 71045; 71046; 80048; 80076; 83735; 84484; 85025; 85379; 87637; 93005; 99284

== ENCOUNTER → 2025-05-23 14:48 | Outpatient (BNV) | payer OTHER, SELFPAY | PROVIDERS: Emergency Provider Emergency Medicine Emergency Medical Services; PCP Internal Medicine; Visit Provider Internal Medicine Cardiovascular Disease | DX: R07.9 Chest pain, unspecified (principal) | CPT/HCPCS: 93010 ==

== ENCOUNTER → 2025-05-23 14:59 | Outpatient (BNV) | payer OTHER, SELFPAY | PROVIDERS: PCP Internal Medicine; Visit Provider Radiology Diagnostic Ultrasound | DX: R07.9 Chest pain, unspecified (principal) | CPT/HCPCS: 71045; 71046 ==